=== PATIENT | female | born 1970 | race Caucasian/White ===

== ENCOUNTER → 2017-03-06 | Outpatient (CLI) | payer OTHER | LOC: RAD 13:25 | DX: M50.323 Other cervical disc degeneration at C6-C7 level (principal) ==

== ENCOUNTER → 2017-05-16 | Outpatient (CLI) | payer OTHER ==
[~2017-05-16] VITALS: Ht 165.1 cm; Wt 68.0 kg
[~2017-05-16] MED LIST: FLUOXETINE HCL40 MG PO; LEVEMIR FL100 UNIT/2 SUBQ; LEVEMIR SUBQ; LISINOPRIL2.5 M1 PO; NOVOLOG FL100 UNIT/M SUBQ; VITAMIN B-6100 MG PO
--- NOTE | ~2017-05-16 | P ---
[facility] [place] [address] PROCEDURE REPORT Name: AUGUST MULLEN Room #: REG [facility]#: [id number] Admission: 05/16/17 Attend Phys: Uvaldo Herrera MD Discharge: Date of : 68 Report #: [id number] THIS REPORT FOR: //name// CC: Luisa Herrera BRIEF HISTORY: The patient is a 46-year-old woman with a strong family history of colon cancer with colon cancer in her mother, brother, maternal grandmother and nephew. Cruz has been identified in some of those patients. She has had genetic testing and did not carry a Cruz anomaly, but was advised to have colonoscopy every 5 years. PREOPERATIVE DIAGNOSIS: Family history of colon cancer. POSTOPERATIVE DIAGNOSIS: Family history of colon cancer. MEDICATIONS: Deep sedation with propofol per anesthesia. SPECIMEN: None. ESTIMATED BLOOD LOSS: None. PROCEDURE: Colonoscopy to cecum and terminal ileum. FINDINGS: Prior to propofol sedation, procedure of colonoscopy discussed with the patient as well as potential risks, benefits, and complications. She indicates she understands and desires to proceed. With the patient in left lateral decubitus position, digital examination was completed, which revealed no abnormalities. Subsequently, the [employer] video colonoscope was introduced in the rectum, advanced under direct vision to the cecum. Done with minimal difficulty. The cecum was identified by the ileocecal valve and the appendiceal orifice. I was able to visualize the distal segment of the terminal ileum, which was inspected and noted to be unremarkable. At that point, the scope was slowly withdrawn and careful circumferential views were obtained including retroflexing the scope in the ascending colon. Upon slow withdrawal of the scope, the prep was noted to be excellent. The mucosa was within normal limits, normal vascular and normal light reflex. As we withdrew the scope, no mucosal abnormalities were seen. No neoplastic lesions were seen. She had a normal endoscopic examination of the entire colon. The scope was withdrawn in the rectum. Upon retroflexion, no abnormalities were seen. Scope was withdrawn. The patient tolerated the procedure well. CONDITION OF THE PATIENT UPON DISCHARGE: Following the procedure, the patient drowsy and arousable, she will be discharged to home when fully ambulatory. [address] [address] PROCEDURE REPORT Name: AUGUST MULLEN Room #: REG [facility].#: [id number] Admission: 05/16/17 Attend Phys: Uvaldo Herrera MD Discharge: Date of : 68 Report #: [id number] INSTRUCTIONS TO THE PATIENT AND FAMILY AT THE TIME OF DISCHARGE: No neoplastic lesions were seen. However, due to her family history, suggest return in 5 years for followup colonoscopy. She will otherwise return to the care of Dr. Luisa Alexander, return to see me as needed Last colonoscopy was 5 years ago. Withdrawal time from the cecum was 10 minutes 28 seconds. <ELECTRONICALLY SIGNED> By: Uvaldo Herrera MD 05/21/17 1617 1101 1639 Uvaldo Herrera MD /nt
== END | disposition home or self-care (01) ==
LOC: GI 06:53
DX: Z12.11 Encounter for screening for malignant neoplasm of colon (principal); Z80.0 Family history of malignant neoplasm of digestive organs; F32.9 Major depressive disorder, single episode, unspecified; F41.9 Anxiety disorder, unspecified; E11.9 Type 2 diabetes mellitus without complications; Z79.899 Other long term (current) drug therapy
CPT/HCPCS: 62110; 62900

== ENCOUNTER → 2017-06-05 | Outpatient (CLI) | payer OTHER | LOC: RAD 02:40 | DX: Z12.31 Encounter for screening mammogram for malignant neoplasm of breast (principal) ==

== ENCOUNTER → 2018-11-27 | Outpatient (CLI) | payer OTHER | LOC: RAD 01:06 | DX: Z12.31 Encounter for screening mammogram for malignant neoplasm of breast (principal) ==

== ENCOUNTER → 2019-09-01 | Outpatient (CLI) | payer OTHER | LOC: CAT 12:45 | PROVIDERS: ATTEND Nurse Practitioner | DX: S92.345A Nondisplaced fracture of fourth metatarsal bone, left foot, initial encounter for closed fracture (principal); M19.072 Primary osteoarthritis, left ankle and foot; M85.872 Other specified disorders of bone density and structure, left ankle and foot; X58.XXXA Exposure to other specified factors, initial encounter; Y93.89 Activity, other specified; Y92.89 Other specified places as the place of occurrence of the external cause; Y99.8 Other external cause status ==

== ENCOUNTER → 2019-09-30 | Outpatient (CLI) | payer OTHER | LOC: NUC 09:37 | PROVIDERS: ATTEND Nurse Practitioner | DX: M84.40XA Pathological fracture, unspecified site, initial encounter for fracture (principal) ==

== ENCOUNTER → 2019-12-03 | Outpatient (CLI) | payer OTHER ==
[2019-12-04 01:06] LABS: IgA 112 mg/dL (87-352); IgG 1204 mg/dL (586-1602); IgM 158 mg/dL (26-217)
[2019-12-04 14:07] LABS: ANA INTERPRETATION Negative (Negative)
== END ==
LOC: LAB 11:38
PROVIDERS: ATTEND Psychiatry & Neurology Neuromuscular Medicine
DX: M54.12 Radiculopathy, cervical region (principal); R26.9 Unspecified abnormalities of gait and mobility

== ENCOUNTER → 2019-12-04 | Outpatient (CLI) | payer OTHER | LOC: MRI 13:53 | PROVIDERS: ATTEND Psychiatry & Neurology Neuromuscular Medicine | DX: M50.122 Cervical disc disorder at C5-C6 level with radiculopathy (principal); M48.02 Spinal stenosis, cervical region; M25.78 Osteophyte, vertebrae; R27.0 Ataxia, unspecified ==

== ENCOUNTER → 2019-12-08 | Outpatient (CLI) | payer OTHER | LOC: LABMALL 10:20 | PROVIDERS: ATTEND Psychiatry & Neurology Neuromuscular Medicine | DX: M54.12 Radiculopathy, cervical region (principal); R26.9 Unspecified abnormalities of gait and mobility ==

== ENCOUNTER → 2020-01-28 | Outpatient (CLI) | payer OTHER ==
[~2020-01-28] MED LIST changes: +COLACE100 MG PO; +HUMALOG100 UNIT/1 SUBQ; +MIRALAX17 GM PO; +PERCOCET 10-321 EACH PO; +ROBAXIN 750 MG750 MG PO; +TOUJEO SOL300 UNIT/1 SUBQ
== END ==
LOC: LAB 00:58
DX: Z01.812 Encounter for preprocedural laboratory examination (principal); Z20.828 Contact with and (suspected) exposure to other viral communicable diseases

== ENCOUNTER 2020-02-02 09:16 | Inpatient (IN) | payer OTHER ==
[2020-01-28 13:19] LABS: URINE BILIRUBIN NEGATIVE (Negative); URINE BLOOD TRACE (Negative); URINE CLARITY CLEAR; URINE COLOR YELLOW; URINE GLUCOSE-RANDOM* 3+ (Negative); URINE KETONES NEGATIVE (Negative); URINE LEUKOCYTES-REFLEX NEGATIVE (Negative); URINE NITRITE-REFLEX NEGATIVE (Negative); URINE PROTEIN (DIPSTICK) NEGATIVE (Negative); URINE SPECIFIC GRAVITY 1.015 (1.005-1.035); URINE UROBILINOGEN 0.2 E.U./dl (0.2-1.0)
[2020-01-28 13:20] LABS: ABSOLUTE NEUTROPHILS 5.3 thou/uL (1.4-8.2); BASOPHILS 0.6 % (0.0-2.0); EOSINOPHILS 2.1 % (0.0-3.0); HEMATOCRIT 39.3 % (37.0-47.0); HEMOGLOBIN 12.8 gm/dL (12.0-15.0); LYMPHOCYTES 19.1 % (24.0-44.0); MCH 28.6 pg (26.0-34.0); MCHC 32.7 g/dL (28.0-37.0); MCV 87.3 fL (80.0-100.0); MONOCYTES 6.7 % (1.0-8.0); PLATELET COUNT 234 thou/uL (150-400); POLYS 71.5 % (36.0-66.0); RDW 13.3 % (10.5-14.5); WBC 7.4 thou/uL (4.0-11.0)
[2020-01-28 13:28] LABS: ALBUMIN 3.8 g/dL (3.4-5.0); CALCIUM 9.2 mg/dL (8.5-10.1); CREATININE 0.9 mg/dL (0.6-1.0); POTASSIUM 4.3 mmol/L (3.5-5.1)
[2020-01-28 13:30] LABS: APTT 30.4 Seconds (24.5-32.8)
[2020-01-28 13:39] LABS: TOTAL BILIRUBIN 0.3 mg/dL (0.2-1.0); TOTAL PROTEIN 7.4 g/dL (6.4-8.2)
--- NOTE | 2020-01-28 15:36 | EKG ---
[facility] [place] [address] ELECTROCARDIOGRAM REPORT Name: AUGUST MULLEN Room #: PRE [facility] M.R.#: [id number] Admission: Attend Phys: Vikram Cash MD Discharge: Date of : 68 Report #: [id number] THIS REPORT FOR: cc: Sandra Johnston Beth RNP Santiago, Patrick MD 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
[2020-01-29 04:06] LABS: GLYCOHEMOGLOBIN (HGB A1C) 8.3 % (4.8-5.6)
[~2020-02-02] VITALS: Ht 165.1 cm; Wt 78.5 kg
[~2020-02-02 09:16] MED LIST changes: -COLACE100 MG PO; -MIRALAX17 GM PO; -PERCOCET 10-321 EACH PO; -ROBAXIN 750 MG750 MG PO
[2020-02-02 11:15] VITALS: BP 119/66
[2020-02-02 16:25] VITALS: BP 129/77
[2020-02-02 16:40] VITALS: BP 130/72
[2020-02-02 18:19] VITALS: BP 126/69
--- NOTE | 2020-02-02 18:56 | NUR ---
Admitted pt. to the unit at 1610. Pt. was calm and cooperative. Pt. complained of severe pain and wanted IV medication. Provider contacted, orders recieved and acted on, PRN med given. Pain patrially relieved. Fall precautions in place.
[2020-02-02 19:47] VITALS: BP 114/69
[2020-02-02 21:00] VITALS: BP 114/69
[2020-02-03 04:53] VITALS: BP 108/61
[2020-02-03 05:44] LABS: ABSOLUTE NEUTROPHILS 13.3 thou/uL (1.4-8.2); BASOPHILS 0.2 % (0.0-2.0); HEMATOCRIT 37.4 % (37.0-47.0); HEMOGLOBIN 12.4 gm/dL (12.0-15.0); LYMPHOCYTES 6.6 % (24.0-44.0); MCH 28.9 pg (26.0-34.0); MCHC 33.2 g/dL (28.0-37.0); MCV 87.2 fL (80.0-100.0); MONOCYTES 5.5 % (1.0-8.0); PLATELET COUNT 234 thou/uL (150-400); POLYS 87.7 % (36.0-66.0); RBC 4.29 mil/uL (4.20-5.00); RDW 13.2 % (10.5-14.5); WBC 15.2 thou/uL (4.0-11.0)
[2020-02-03 05:50] LABS: CALCIUM 8.9 mg/dL (8.5-10.1); CREATININE 0.8 mg/dL (0.6-1.0); MAGNESIUM 1.7 mg/dL (1.8-2.4); POTASSIUM 4.4 mmol/L (3.5-5.1)
--- NOTE | 2020-02-03 05:55 | NUR ---
Assumed pt care at 1900. A/OX4,VSS.Pt had an episode of N/V X1 with clear emesis noted. Medicated with Po Compazine with relief reported. Medicated for pain with relief reported. Soft cervical collar in place. Up w/SBA to BR, passing gas and voiding w/o problems. IVF abts infused as ordered. C/o icthing this morning;order for Benadryl obtained and administered. Will monitor for effectiveness.
[2020-02-03 07:37] VITALS: BP 112/64
--- NOTE | 2020-02-03 09:53 | NUR ---
PT CARE ASSUMED AT 0700. A&Ox4. CERVICAL IN PLACE. SCD'S/TEDHOSES IN PLACE. PAIN MANAGED WELL WITH PAIN MEDICATION ON BOARD. UP AT PETE INDEPENDENTLY IN THE ROOM. SPOUSE AT BEDSITE. IV PATENT WITH NO REDNESS OR EDEMA, SALINE LOCKED. CLEARED TO GO HOME PER PT. PER SLIDING SCALE PT WAS TO RECEIVE 4 UNITS PATIENT REQUESTED 10 UNITS PER HER HOME REGIMENT. FALL PROTOCOL IN PLACE. CALL LIGHT IN REACH. INCISION SITE WITH NO REDNESS OR EDMEA. WILL CONTINUE TO MONITOR.
[2020-02-03] MEDS ORDERED: PERCOCET 10-321 EACH PO (10:35)
--- NOTE | 2020-02-03 13:44 | NUR ---
ASSESSMENT: CM REVIEWED CHART AND SPOKE WITH PT. PT IS ALERT AND ORIENTED X4. PT REPORTS LIVING IN A HOUSE WITH HER AND DAUGHTER. PT REPORTS 5 STEPS WITH HANDRAIL TO ENTER AND A FULL FLIGHT WITH HANDRAILS TO HER BEDROOM. PT REPORTS BEING FULLY INDEPENDENT WITH ADLS AND AMBULATION. CM DISCUSSED ROLE. PT DOES NOT ANTICIPATE HAVING ANY NEEDS FROM CM . PT STATES SHE HAS HH IN THE PAST YEARS AGO AFTER A BUT STATES SHE HAS NOT HAD IT SINCE OR DOES NO FEEL SHE NEEDS IT.
[2020-02-03] MEDS ORDERED: MIRALAX17 GM PO (16:40)
[2020-02-03] MEDS ORDERED: COLACE100 MG PO (16:40)
[2020-02-03] MEDS ORDERED: ROBAXIN 750 MG750 MG PO (16:40)
[2020-02-03 16:41] VITALS: BP 112/64
--- NOTE | 2020-02-04 06:56 | NUR ---
PATIENT D/C PRIOR TO OT EVAL
--- NOTE | 2020-02-05 13:49 | O ---
[facility] [place] [address] OPERATIVE REPORT Name: AUGUST MULLEN Room #: 448-P [facility] M.R.#: [id number] Admission: 02/02/20 Attend Phys: Vikram Cash MD Discharge: 02/03/20 Date of : 68 Report #: [id number] THIS REPORT FOR: cc: Sandra Johnston,Vikram Harris MD ~ CC: Sandra Cash DATE OF SERVICE: 02/02/2020 PREPROCEDURAL DIAGNOSES: C6-C7 herniated nucleus pulposus, C7 radiculopathy, spinal stenosis and neck pain. POSTPROCEDURAL DIAGNOSES: C6-C7 herniated nucleus pulposus, C7 radiculopathy, spinal stenosis and neck pain. PROCEDURE: C6-C7 cervical total disk replacement (Orthofix M6). SURGEON: Vikram Cash M.D. BODY RECALL INSTRUCTOR SURGEON: Chantelle Chapman. ANESTHESIA: General via endotracheal tube. INDICATIONS: The patient has had intractable neck and arm pain. She has proved refractory to multiple modality conservative management. She has been shown to have a significant herniated disk that matches with her symptoms including triceps weakness and C7 radiculopathy with the C6-C7 herniated disk. It is also causing significant spinal stenosis of the canal. The patient's proved refractory to all forms of multimodality conservative managements, requesting we proceed with operative intervention. She understands the risks of surgery to be , DVT, pulmonary embolism, paraplegia, loss of bowel and bladder function, loss of sexual function, possibility of bleeding, bleeding requiring transfusion, transfusion attendant risks of AIDS and hepatitis infection, instability, the need for revision, prolonged hospital stay, dural leak, spinal headache, infection, failure of fusion, adjacent level breakdown and she requested we proceed. DESCRIPTION OF PROCEDURE: The patient was brought to the operating room, administered general anesthesia via endotracheal tube. An esophageal stethoscope was placed. She received 10 of Decadron. She was positioned on the radiolucent Wyatt table in the supine position with a bump between the scapula to afford scapular retraction and a neck neutral position. The arms were carefully padded, tucked and taped to the side. The hips and knees were flexed over 2 pillows and the heels were on gel. The patient in this neck neutral [address] [address] OPERATIVE REPORT Name: AUGUST MULLEN Room #: 448-P [facility] M.R.#: [id number] Admission: 02/02/20 Attend Phys: Vikram Cash MD Discharge: 02/03/20 Date of : 68 Report #: [id number] position, the anterior aspect of the neck was defatted with alcohol, visualized under fluoroscopy and the skin fold most approximating the C6-C7 level on the left was chosen. The sterile prep and drape ensued. We infiltrated the skin with 0.5% Marcaine, 1:200,000 epinephrine and sharp dissection was continued down through the skin, the subcutaneous tissues. Flaps were undermined and a small Gelpi was placed for tissue retraction. We elevated the platysma between two forceps and incised it with the Metzenbaum scissors and then extended it in combination in line with its fibers at the anterior border of the sternocleidomastoid. We then bluntly dissected to the midline and marked the first disk we encountered. Fluoroscopy was brought into the field. A lateral revealed we were at the C6-C7 desired level. We then swept the fibrofatty tissue off the spine, performed a very small subperiosteal dissection just above and below the disk, inserted the blunt retractor blades in the longus colli to provide retraction isolation of the C6-C7 disk. I performed an anterior annulectomy, performed a total diskectomy, removed the spondylitic ridge of C6 and C7. We performed posterior neural foraminal decompressions by resecting medial half of the uncovertebral joints bilaterally, took down the posterior longitudinal ligament to the naked dura to ensure a complete posterior release and removal of all of the herniated disk. With the disk removed and the posterior ligament completely decompressed, we paddle distracted to accept the 6 mm trial and we used a large. The large appeared to be appropriate. The trial was placed and looked superb with respect to placement within the disk space at C6-C7 and this was tamped back to the posterior cortex under fluoroscopic visualization. We then removed the trial as it had been well centered on the midline, inserted the fin cutter and cut our grooves for the fins of the prosthesis. This was then removed and then we checked and seated the prosthesis and then checked in AP and lateral fluoroscopy view and it was well centered on the AP and perfectly placed on the lateral. It appeared to be of appropriate size, height and it was within 0.5 mm of the posterior cortex of C6 and C7. We then deemed the procedure complete with the exception of obtaining meticulous hemostasis. A few punctate bleeders were addressed with bipolar cautery and then we irrigated with a liter of antibiotic-containing solution. We closed the platysma with 3-0 Vicryl, the subcutaneous with 3-0 Vicryl, and the skin with a running 4-0 Monocryl and dressed it with benzoin, Steri-Strips, Xeroform, sterile dressing, sponges and a bioclusive. The patient tolerated the procedure well. There were no technical misadventures and she was being transported to the recovery room for closer neurovascular observation and discharge to floor when stable in her soft collar. Final blood loss was less than 50 mL and there were no apparent complications. Level was documented by fluoroscopy. Final position documented again by fluoroscopy. The patient was stable throughout. <ELECTRONICALLY SIGNED> By: Vikram Cash MD 02/05/20 1349 1454 1523 Vikram Cash MD /nt
== END 2020-02-03 17:35 | disposition home or self-care (01) | DRG 518 ==
LOC: OR 09:16 → TBA 09:22 → OR 12:38 → 4S 15:37
PROVIDERS: Nurse Practitioner
PROC: 0RR30JZ Replacement of Cervical Vertebral Disc with Synthetic Substitute, Open Approach (ICD-10-PCS; principal; 2020-02-02)
DX: M50.123 Cervical disc disorder at C6-C7 level with radiculopathy (principal); M48.02 Spinal stenosis, cervical region; E11.9 Type 2 diabetes mellitus without complications; Z98.891 History of uterine scar from previous surgery
CPT/HCPCS: 10102; 50010; 50101; 50402; 51725; 56526; 56528; 62110; 62900; 70005

== ENCOUNTER → 2020-02-15 | Outpatient (CLI) | payer OTHER ==
[~2020-02-15] MED LIST changes: +COLACE100 MG PO; +MIRALAX17 GM PO; +PERCOCET 10-321 EACH PO; +ROBAXIN 750 MG750 MG PO
== END ==
LOC: RAD 10:30
DX: M50.223 Other cervical disc displacement at C6-C7 level (principal); Z98.890 Other specified postprocedural states

== ENCOUNTER → 2020-03-11 | Outpatient (CLI) | payer OTHER | LOC: RAD 11:18 | DX: Z98.890 Other specified postprocedural states (principal); Z98.1 Arthrodesis status ==

== ENCOUNTER → 2020-03-30 | Outpatient (CLI) | payer OTHER | LOC: RAD 09:43 | PROVIDERS: ATTEND Specialist | DX: Z12.31 Encounter for screening mammogram for malignant neoplasm of breast (principal) ==

== ENCOUNTER → 2020-06-16 | Outpatient (CLI) | payer OTHER ==
[2020-06-16 11:36] LABS: ABSOLUTE NEUTROPHILS 4.1 thou/uL (1.4-8.2); BASOPHILS 0.4 % (0.0-2.0); EOSINOPHILS 4.1 % (0.0-3.0); HEMATOCRIT 38.2 % (37.0-47.0); LYMPHOCYTES 22.3 % (24.0-44.0); MCH 29.5 pg (26.0-34.0); MCV 86.6 fL (80.0-100.0); MONOCYTES 7.8 % (1.0-8.0); PLATELET COUNT 223 thou/uL (150-400); POLYS 65.4 % (36.0-66.0); RBC 4.42 mil/uL (4.20-5.00); RDW 14.4 % (10.5-14.5); WBC 6.3 thou/uL (4.0-11.0)
[2020-06-16 11:38] LABS: URINE BILIRUBIN NEGATIVE (Negative); URINE BLOOD TRACE (Negative); URINE CLARITY CLEAR; URINE COLOR YELLOW; URINE GLUCOSE-RANDOM* NEGATIVE (Negative); URINE KETONES NEGATIVE (Negative); URINE LEUKOCYTES-REFLEX NEGATIVE (Negative); URINE NITRITE-REFLEX NEGATIVE (Negative); URINE PROTEIN (DIPSTICK) NEGATIVE (Negative); URINE SPECIFIC GRAVITY <= 1.005 (1.005-1.035); URINE UROBILINOGEN 0.2 E.U./dl (0.2-1.0)
[2020-06-16 11:52] LABS: ALBUMIN 3.5 g/dL (3.4-5.0); ANION GAP 7 mmol/L (7-16); BUN 8 mg/dL (7-18); CALCIUM 9.4 mg/dL (8.5-10.1); CHLORIDE 103 mmol/L (98-107); CHOLESTEROL 234 mg/dL (<200); CO2 29 mmol/L (21-32); CREATININE 0.7 mg/dL (0.6-1.0); GLUCOSE 154 mg/dL (74-106); HDL CHOLESTEROL 71 mg/dL (>40); LDL CHOLESTEROL 151 mg/dL (<100); POTASSIUM 4.2 mmol/L (3.5-5.1); SGOT 30 U/L (15-37); SGPT 47 U/L (30-65); SODIUM 139 mmol/L (136-145); TC:HDL 3.3 Ratio (Not establshd); TOTAL BILIRUBIN 0.2 mg/dL (0.2-1.0); TOTAL PROTEIN 7.3 g/dL (6.4-8.2); TRIGLYCERIDE 63 mg/dL (<150); VLDL 13 mg/dL (<40)
[2020-06-16 22:06] LABS: GLYCOHEMOGLOBIN (HGB A1C) 8.4 % (4.8-5.6)
== END ==
LOC: RAD 10:50 → LAB 10:50
PROVIDERS: ATTEND Nurse Practitioner
DX: E10.9 Type 1 diabetes mellitus without complications (principal)

== ENCOUNTER → 2020-06-17 | Outpatient (CLI) | payer OTHER | LOC: RAD 10:51 → BC 15:34 | PROVIDERS: ATTEND Specialist | DX: M19.011 Primary osteoarthritis, right shoulder (principal); M77.8 Other enthesopathies, not elsewhere classified; N60.01 Solitary cyst of right breast; N60.02 Solitary cyst of left breast ==

== ENCOUNTER → 2021-05-12 | Outpatient (CLI) | payer OTHER ==
[2021-05-12 10:45] LABS: ABSOLUTE NEUTROPHILS 7.6 thou/uL (1.4-8.2); BASOPHILS 0.5 % (0.0-2.0); EOSINOPHILS 2.2 % (0.0-3.0); HEMATOCRIT 38.3 % (37.0-47.0); HEMOGLOBIN 12.9 gm/dL (12.0-15.0); LYMPHOCYTES 12.6 % (24.0-44.0); MCH 29.2 pg (26.0-34.0); MCHC 33.6 g/dL (28.0-37.0); MONOCYTES 7.7 % (1.0-8.0); PLATELET COUNT 179 thou/uL (150-400); RBC 4.41 mil/uL (4.20-5.00); RDW 13.9 % (10.5-14.5); WBC 9.9 thou/uL (4.0-11.0)
[2021-05-12 11:25] LABS: ALBUMIN 3.5 g/dL (3.4-5.0); ANION GAP 8 mmol/L (7-16); BUN 10 mg/dL (7-18); CALCIUM 8.7 mg/dL (8.5-10.1); CHLORIDE 100 mmol/L (98-107); CHOLESTEROL 133 mg/dL (<200); CO2 28 mmol/L (21-32); CREATININE 0.7 mg/dL (0.6-1.0); GLUCOSE 182 mg/dL (74-106); HDL CHOLESTEROL 75 mg/dL (>40); LDL CHOLESTEROL 48 mg/dL (<100); POTASSIUM 4.4 mmol/L (3.5-5.1); SGOT 38 U/L (15-37); SGPT 70 U/L (30-65); SODIUM 136 mmol/L (136-145); TC:HDL 1.8 Ratio (Not establshd); TOTAL BILIRUBIN 0.3 mg/dL (0.2-1.0); TOTAL PROTEIN 7.1 g/dL (6.4-8.2); TRIGLYCERIDE 52 mg/dL (<150); VLDL 10 mg/dL (<40)
[2021-05-13 08:08] LABS: GLYCOHEMOGLOBIN (HGB A1C) 7.9 % (4.8-5.6)
== END ==
LOC: LAB 09:58
PROVIDERS: ATTEND Nurse Practitioner
DX: E10.65 Type 1 diabetes mellitus with hyperglycemia (principal)

== ENCOUNTER → 2021-05-15 | Outpatient (CLI) | payer OTHER | LOC: MRI 09:38 | PROVIDERS: ATTEND Nurse Practitioner | DX: R92.2 Inconclusive mammogram (principal); N64.59 Other signs and symptoms in breast; Z80.3 Family history of malignant neoplasm of breast ==

== ENCOUNTER → 2021-05-25 | Outpatient (CLI) | payer OTHER | LOC: RAD 15:03 | PROVIDERS: ATTEND Nurse Practitioner | DX: Z12.31 Encounter for screening mammogram for malignant neoplasm of breast (principal); N64.59 Other signs and symptoms in breast ==